=== PATIENT | male | born 1990 | race Caucasian/White ===

== ENCOUNTER 2016-09-03 01:13 | Emergency (ER) | payer OTHER ==
[~2016-09-03] VITALS: Ht 177.8 cm; Wt 83.9 kg
[2016-09-03 01:15] VITALS: BP_SYST 162
== END 2016-09-03 01:40 ==
LOC: SED 01:13
DX: Z02.83 Encounter for blood-alcohol and blood-drug test (principal)
CPT/HCPCS: 99283